=== PATIENT | male | born 1990 | race Caucasian/White ===

== ENCOUNTER 2017-02-05 18:18 | Emergency (ER) | payer SELFPAY ==
--- NOTE | 2017-02-05 19:39 | UC ---
Back Pain HPI - HPI Summary HPI Summary: The patient comes in today for: 1. Middle back spasms: Onset: 2 weeks ago. Palliative/provocative: NOthing makes it better. HE states that breathing makes it worse, and not breathing helps it. Quality: Sharp. Region: Middle back. Severity: 06/12 Time: Constant 02/10 to 06/12 Associated symptoms: Event: No precipitating event. It came on slowly. Bowel/bladder control problems: None. Infections/fever: None. Numbness or weakness: None. Cancers/unexpected weight loss: None. Previous problems: None. 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 He has not worked in the last couple of weeks. The patient states that the pain will just grab him at times. He does not have a primary care provider. * - History of Current Complaint Chief Complaint: UCBackPain Stated Complaint: BACK PAIN,SPASMS Time Seen by Provider: 02/05/17 19:32 Hx Obtained From: Patient - Allergies/Home Medications Allergies/Adverse Reactions: Allergies Allergy/AdvReac Type Severity Reaction Status Date / Time Cefadroxil [From [facility]] Allergy Severe Rash Verified 02/05/17 18:27 PMH/Surg Hx/FS Hx/Imm Hx Previously Healthy: Yes - Surgical History Surgical History: Yes Surgery Procedure, Year, and Place: 3 SHOULDER SURGERIES - Family History Known Family History: Positive: Hypertension Negative: Cardiac Disease - Social History Occupation: Employed Full-time Alcohol Use: None Substance Use Type: None Smoking Status (MU): Current Some Day Smoker Review of Systems Constitutional: Negative Skin: Negative Eyes: Negative ENT: Negative Respiratory: Negative Cardiovascular: Negative Gastrointestinal: Negative Genitourinary: Negative Motor: Negative Musculoskeletal: Arthralgia All Other Systems Reviewed And Are Negative: Yes Physical Exam Triage Information Reviewed: Yes Appearance: Well-Appearing, Well-Nourished, Pain Distress - He was slow moving and guarded at times. He did not want to lay back on the exam table at first in anticipation of back pain, but he later did with no problem as long as he did it on his side. Vital Signs: Initial Vital Signs Temp 98.3 F 02/05/17 18:25 Pulse 70 02/05/17 18:25 Resp 16 02/05/17 18:25 BP 116/67 02/05/17 18:25 Pulse Ox 100 02/05/17 18:25 Vital Signs Reviewed: Yes Eyes: Positive: Conjunctiva Clear. Negative: Discharge ENT: Positive: Hearing grossly normal. Negative: Pharyngeal erythema, Nasal congestion, Nasal drainage, TM bulging, TM dull, TM red, Tonsillar swelling, Tonsillar exudate Dental: Negative: Gross Decay/Caries @, Dental Fracture @ Neck: Negative: Supple, Nontender, No Lymphadenopathy, Nuchal Rigidity, Enlarged Nodes @ Respiratory: Positive: Chest non-tender, Lungs clear, No respiratory distress, No accessory muscle use. Negative: Crackles, Rhonchi Cardiovascular: Positive: RRR, No Murmur Abdomen Description: Positive: No Organomegaly, Soft. Negative: Nontender, Distended, Guarding Musculoskeletal: Positive: Strength Intact, ROM Intact, No Edema, Other: - Back : He has guarded, slow movement. There was no tenderness to palpation of the lumbar and thoracic paraspinous musculature. There was slight tenderness to palpation of a focal area along the spinous processes in the lower thoracic area. There was no tenderness to palpation of the medial borders of the scapulae. He had good range of motion of the back (bilateral flexion as well as forward flexion and backward extension. Neurological: Positive: Alert, Muscle Tone Normal Psychological: Positive: Age Appropriate Behavior, Consolable Skin: Negative: rashes, breakdown Diagnostics - Radiology No standard instances Xray Interpretation: No Acute Changes - No problems seen on the thoracolumbar spine x-rays. Radiology Interpretation Completed By: Radiologist Back Pain Course/Dx - Course Course Of Treatment: The patient was told that his pain seemed to be related to soft tissue injury due to the negative spine x-ray. Treatment options were discussed. He was encouraged to link up with a primary care provider for follow up. - Differential Dx/Diagnosis Provider Diagnoses: Back pain. Discharge - Discharge Plan Condition: Stable Disposition: HOME Patient Education Materials: Back Pain (ED) Referrals: No Primary Care Phys,NOPCP [Primary Care Provider] - 1 Week (Please see your primary care provider in about a week to see how well you are doing. If you don't have a primary care provider, please contact the physician referral service. If you can't get in timely, please you may come back to see us until you can. If you get worse, please be seen sooner by us or the ER.us.) [facility] PH[facility]ICIAN REFERRAL [Outside]
[2017-02-05] MEDS ORDERED: Ketorolac INJ* 60 MG/2 ML VIAL IM ONE (19:50)
--- NOTE | 2017-02-05 20:13 | RAD ---
INDICATION: Back injury. COMPARISON: There are no prior studies available for comparison. TECHNIQUE: AP and lateral films of the spine were obtained centered at the dorsal lumbar junction. FINDINGS: The vertebra are in normal alignment. No fracture is seen. Disc spaces appear maintained. IMPRESSION: NO EVIDENCE FOR FRACTURE.
[2017-02-05 20:40] VITALS: BP 113/65
== END 2017-02-05 20:48 | disposition home or self-care (01) ==
LOC: UCEAST 18:18
DX: M54.9 Dorsalgia, unspecified (principal); Z72.0 Tobacco use
CPT/HCPCS: 72080; 96372; 99212; G0463; J1885

== ENCOUNTER 2019-01-25 08:58 | Emergency (ER) | payer MEDICAID, OTHER ==
[2019-01-25 09:13] VITALS: BP 128/60
[2019-01-25] MEDS ORDERED: Eye Irrigation Solution 30 ML BOTTLE LEFT EYE ONE (09:26)
[2019-01-25] MEDS ORDERED: Fluorescein Sodium TOPICAL* 1 MG TEST STRIP OPHTHALMIC ONE (09:26)
[2019-01-25] MEDS ORDERED: Tetracaine 0.5% OPTH.SOL 4 ML* 1 DROP BTL RIGHT EYE ONE (09:27)
--- NOTE | 2019-01-25 09:27 | UC ---
Eye Complaint HPI - HPI Summary HPI Summary: 28 y/o male presents to the urgent care c/o FB in his Rt eye since 01/21 after grinding some metal roof. Pt reports he felt mild irritation. However, yesterday he was doing some work outside his lawn and he felt a branch scratched his RT eye. Last night he developed sensitivity to light. His eye has been watery. This morning, eye irritation has worsen. Eye pain is 9/10. He irrigated his eye the first time. He denies SMILEY, fever, eye purulent discharge, SOB, dizziness, chest pain, abdominal pain, N/V/D. He is not UTD w/ his Tetanus vaccine. - History of Current Complaint Chief Complaint: UCEye Stated Complaint: RT EYE INJURY Time Seen by Provider: 01/25/19 09:26 Hx Obtained From: Patient Onset/Duration: Sudden Onset, Lasting Days - 3 days, Still Present, Worse Since - yesterday Timing: Constant Severity Initially: Moderate Severity Currently: Severe Pain Intensity: 9 Pain Scale Used: 0-10 Numeric Location of Injury: Conjunctiva - RT eye FB sesnation Character: Foreign Body Sensation Aggravating Factor(s): Blinking Associated Signs And Symptoms: Positive: Photophobia, Drainage (Clear). Negative: Vision Impairment Bilateral, Fever, Swelling - Risk Factors Penetrating Injury Risk Factor: Grinding Globe Rupture Risk Factors: Negative Acute Glaucoma Risk Factors: Negative Optic Artery Occlusion Risk Factors: Negative - Allergies/Home Medications Allergies/Adverse Reactions: Allergies Allergy/AdvReac Type Severity Reaction Status Date / Time cefadroxil Allergy Rash Verified 01/25/19 09:13 Home Medications: Home Medications Amphetamine MIXED SALT TAB* [Adderall TAB*] 20 mg PO DAILY 01/25/19 [History Confirmed 01/25/19] PMH/Surg Hx/FS Hx/Imm Hx Previously Healthy: Yes Other Psychological History: ADHD - Surgical History Surgical History: Yes Surgery Procedure, Year, and Place: 3 SHOULDER SURGERIES - Family History Known Family History: Positive: Hypertension Negative: Cardiac Disease - Social History Occupation: Employed Full-time Lives: With Family Alcohol Use: Occasionally Substance Use Type: Marijuana Substance Use Comment - Amount & Last Used: about once a month Smoking Status (MU): Light Every Day Tobacco Smoker Type: Cigars - Immunization History Hx Tetanus, Diphtheria Vaccination: No - unknown Review of Systems All Other Systems Reviewed And Are Negative: Yes Constitutional: Positive: Negative Skin: Positive: Negative Eyes: Positive: Eye Redness - RT eye FB, Photophobia ENT: Positive: Negative Respiratory: Positive: Negative Cardiovascular: Positive: Negative Gastrointestinal: Positive: Negative Genitourinary: Positive: Negative Motor: Positive: Negative Neurovascular: Positive: Negative Musculoskeletal: Positive: Negative Neurological: Positive: Negative Psychological: Positive: Negative Is Patient Immunocompromised?: No Physical Exam - Summary Physical Exam Summary: Vital Signs Reviewed: Yes General: Well appearing, well nourished male in no apparent pain distress Eyes: Positive:LF eye with conjunctiva clear, sclera is white. RT eye with inflamed conjunctiva and clear eye discharge. B/L PERRLA, EOMI w/o any nystagmus or strabismus. Fundi appears benign. Disks are well delineated. There are no hemorrhages or exudates. Visual acuity is 20/20 bilaterally, and visual navarrete are within normal limits. Positive foreign body around 9 o' clock. eyelashes clear. mild tearing and yellowish drainage observed. No ciliary flush. No chemosis, mild photophobia. Normal fundoscopic exam; no proptosis, exophthalmos, nystagmus. ENT: Positive: Normal ENT inspection, Hearing grossly normal, Pharynx normal, Nasal congestion, Nasal drainage - clear, TMs normal - B/L external ear canal clear , TM's WNL. Negative: Tonsillar swelling, Tonsillar exudate Neck: Positive: Supple, Nontender, No Lymphadenopathy Respiratory: Positive: Chest nontender, Lungs clear, Normal breath sounds, No respiratory distress Cardiovascular: Positive: RRR, No Murmur, Pulses Normal, Brisk Capillary Refill Abdomen Description: Positive: Nontender, No Organomegaly, Soft. Negative: CVA Tenderness (R), CVA Tenderness (L) Bowel Sounds: Positive: Present Musculoskeletal: Positive: Strength Intact, ROM Intact, No Edema Neurological Exam: Normal Psychological Exam: Normal Skin Exam: Normal Triage Information Reviewed: Yes Vital Signs: Initial Vital Signs Temp 98.3 F 01/25/19 09:08 Pulse 79 01/25/19 09:08 Resp 16 01/25/19 09:08 BP 128/60 01/25/19 09:08 Pulse Ox 99 01/25/19 09:08 Eye Complaint Course/Dx - Course Course Of Treatment: 28 y/o male presents to the urgent care c/o FB in his Rt eye since 01/21 after grinding some metal roof. Pt reports he felt mild irritation. However, yesterday he was doing some work outside his lawn and he felt a branch scratched his RT eye. Last night he developed sensitivity to light. His eye has been watery. This morning, eye irritation has worsen. Eye pain is 9/10. He irrigated his eye the first time. He denies SMILEY, fever, eye purulent discharge, SOB, dizziness, chest pain, abdominal pain, N/V/D. He is not UTD w/ his Tetanus vaccine. Hx obtained. LF eye with conjunctiva clear, sclera is white. RT eye with inflamed conjunctiva and clear eye discharge. B/L PERRLA, EOMI w/o any nystagmus or strabismus. Fundi appears benign. Disks are well delineated. There are no hemorrhages or exudates. Visual acuity is 20/20 bilaterally, and visual navarrete are within normal limits. Positive foreign body around 9 o' clock. 2 drops of Tetracaine optha drops placed on Pts left eye, then irrigated with saline drops to flush any foreign particles, Unable to removed FB. DR Jose also tried, but unsuccessful. He recommended Pt to go to [facility] ER since they have an rn clinical documentation specialist activities concierge. Pt given Tdap, [place] for pain and first dose of erythormycin ophthalmic by the nurse. Also Rt eye covered w/ eye patch. Pt Rx Erythromycin ophthalmic ointment and advised to go inmediately to the [facility] for further management. D/C instructions explained. pt Understood and agreed. states she will take him immediately to the ER. PT left clinic hemodynamically stable, A&OX3. - Differential Dx/Diagnosis Differential Diagnosis/HQI/PQRI: Conjunctivitis, Foreign Body, Penetrating Injury Provider Diagnosis: Foreign body of right eye Discharge - Sign-Out/Discharge Documenting (check all that apply): Patient Departure - d/c home All imaging exams completed and their final reports reviewed: No Studies - Discharge Plan Condition: Stable Disposition: HOME-RECOMMEND TO ED Prescriptions: Erythromycin OPTH OINT* [Erythromycin 0.5% OPTH OINT*] 1 applic RIGHT EYE TID # 1 ophth.oint Patient Education Materials: Eye Foreign Body (ED) Referrals: Donell Garcia MD [Medical Doctor] - 1 Day Additional Instructions: 1-Please apply Erythromycin ophthalmic oint as instructed to prevent infection. Tdap was give to you today. 2-I highly recommend you to go to [facility] ER for further management in your eye Foreing body. They have an Hse Advisor activities concierge who can manage manage you eye FB. - Billing Disposition and Condition Condition: STABLE Disposition: Home-Recommend to ED
[2019-01-25] MEDS ORDERED: Tetan/Diph/Pertus SYR(Tdap)* 0.5 ML SYR(BOOSTRIX) use SYR IM ONE (09:54)
[2019-01-25] MEDS ORDERED: oxyCODONE/Acetamin 5/325 MG* TAB PO ONE (10:19)
[2019-01-25] MEDS ORDERED: HYDROcodone/ACETAMIN 5-325 MG* 1 TAB PO ONE (10:24)
[2019-01-25] MEDS ORDERED: Erythromycin TOPICAL GEL* 30 GM TUBE TOPICAL SCH ×2 (10:24→14:00)
[2019-01-25] MEDS ORDERED: Erythromycin OPTH OINT* APPLIC OINT RIGHT EYE ONE (10:30)
== END 2019-01-25 10:42 | disposition home health service (06) ==
LOC: UCEAST 08:58
DX: T15.91XA Foreign body on external eye, part unspecified, right eye, initial encounter (principal); W22.8XXA Striking against or struck by other objects, initial encounter; Y93.H3 Activity, building and construction; Y92.018 Other place in single-family (private) house as the place of occurrence of the external cause; Y99.0 Civilian activity done for income or pay; Z79.899 Other long term (current) drug therapy
CPT/HCPCS: 90471; 90715; 99213; A9270-GY; G0463

== ENCOUNTER 2019-06-10 14:51 | Emergency (ER) | payer OTHER ==
[2019-06-10 15:00] VITALS: BP 125/70
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
[2019-06-10] MEDS ORDERED: Benzoin Compound STICK TOPICAL ONE (16:04)
== END 2019-06-10 16:35 | disposition home or self-care (01) ==
LOC: UCEAST 14:51
DX: S01.81XA Laceration without foreign body of other part of head, initial encounter (principal); Z88.1 Allergy status to other antibiotic agents; F17.210 Nicotine dependence, cigarettes, uncomplicated; W22.8XXA Striking against or struck by other objects, initial encounter; Y93.89 Activity, other specified; Y92.9 Unspecified place or not applicable
CPT/HCPCS: 12011; 70450; 99211; G0463